=== PATIENT | female | born 1975 | race Two or more races ===

== ENCOUNTER 2024-11-04 06:21 | Emergency (ER) | payer MEDICAID, OTHER ==
[~2024-11-04] VITALS: Ht 165.1 cm; Wt 72.7 kg
[2024-11-04] MEDS: HYDROmorphone HCL 2 MG/ML VL/or syr IV ONE ×2 (07:00→16:17)
[2024-11-04] MEDS: ONDANSETRON HCL 4 MG/2 ML VIAL IV ONE ×2 (07:00→16:18)
--- NOTE | 2024-11-04 07:08 | ED.PDOC ---
GI ASSESSMENT HPI Comments 49-year-old female here with abdominal pain x2 days worse in the right lower quadrant. Patient reports, pain to be "stretching" like in nature worsening with movement. Patient endorses, LMB to have been as of this morning (11/04/24) which was accompanied by excessive gas. Patient denies current , nausea, vomiting, or diarrhea. No other symptoms or modifiers present at this time. Chief Complaint: Abdominal Pain Time Seen by MD: 06:33 Reviewed Notes: Nurses Notes, Medications, Allergies Allergies: Coded Allergies: Morphine (Verified Adverse Reaction, Severe, 11/04/24) Uncoded Allergies: steroids (Adverse Reaction, Unknown, 11/04/24) Home Meds Active Scripts Docusate Sodium (Colace) 100 Mg Cap, 1 CAP PO BID for 7 Days, #14 CAP Prov:BE WALLACE MD 11/04/24 Ondansetron Odt 4MG Tab (ZOFRAN PO) 4 Mg Tb, 4 MG PO Q8HPRN PRN for 7 Days, #21 TAB ODT TAB-DISSOLVE IN MOUTH, THEN SWALLOW Prov:BE WALLACE MD 11/04/24 Hydrocodone-Acetaminophen (Hydrocodone Bitartrate/AC 5-325 mg) 1 Tab Tab, 1 TAB PO Q6HP PRN for 7 Days, #14 TAB Prov:BE WALLACE MD 11/04/24 Information Source: Patient Mode of Arrival: Wheelchair Timing: Days Duration: Since onset Prehospital treatment: None Quality: None Vomitus: None Stool: Normal Severity: Moderate Recent: None Recent Hx of: None Pain Location: Diffuse Modifying Factors: Nothing Associated sign and symptoms: Nausea, Abdominal Pain Past Medical History PAST MEDICAL HISTORY: Denies Surgical History: Appendectomy WEEDER THINNER History: Denies all WEEDER THINNER Hx Family History Family History: Unknown Social History Smoker: Non-Smoker Alcohol: Denies ETOH Use Drugs: Denies Drug Use Lives In: Home Constitutional: denies: chills, diaphoresis, fatigue, fever, malaise, sweats, weakness, others EENTM: denies: blurred vision, double vision, ear bleeding, ear discharge, ear drainage, ear pain, ear ringing, eye pain, eye redness, hearing loss, mouth pain, mouth swelling, nasal discharge, nose bleeding, nose congestion, nose pain, photophobia, tearing, throat pain, throat swelling, voice changes, others Respiratory: denies: cough, hemoptysis, orthopnea, SOB at rest, shortness of breath, SOB with excertion, stridor, wheezing, others Cardiovascular: denies: chest pain, dizzy spells, diaphoresis, Dyspnea on exertion, edema, irregular heart beat, left arm pain, lightheadedness, palpitations, PND, syncope, others Gastrointestinal: reports: abdominal pain; denies: abdomen distended, blood st reaked bowels, constipated, diarrhea, dysphagia, difficulty swallowing, hematemesis, melena, nausea, poor appetite, poor fluid intake, rectal bleeding, rectal pain, vomiting, others Genitourinary: denies: abnormal vagina bleeding, burning, dyspareunia, dysuria, flank pain, frequency, hematuria, incontinence, pain, , vagina discharge, urgency, others Neurological: denies: dizziness, fainting, headache, left sided numbness, left sided weakness, numbness, paresthesia, pre-existing deficit, right sided numbness, right sided weakness, seizure, speech problems, tingling, tremors, weakness, others Musculoskeletal: denies: back pain, gout, joint pain, joint swelling, muscle pain, muscle stiffness, neck pain, others Integumetry: denies: bruises, change in color, change in hair/nails, dryness, laceration, lesions, lumps, rash, wounds, others Allergic/Immunocompromised: denies: Difficulty Healing, Frequent Infections, Hives, Itching, others Hematologic/Lymphatic: denies: anemia, blood clots, easy bleeding, easy bruising, swollen glands, others Endocrine: denies: excessive hunger, excessive sweating, excessive thirst, excessive urination, flushing, intolerance to cold, intolerance to heat, unexplained weight gain, unexplained weight loss, others Psychiatric: denies: anxiety, bipolar disorder, depression, hopeless, panic disorder, schizophrenia, sleepless, suicidal, others All Other Systems: Reviewed and Negative Physical Exam General Appearance: No Apparent Distress, Normal HEENT: Normal ENT Inspection, Pharynx Normal, TMs Normal Neck: Full Range of Motion, Non-Tender, Normal, Normal Inspection Respiratory: Chest Non-Tender, Lungs Clear, No Accessory Muscle Use, No Respiratory Distress, Normal Breath Sounds Cardiovascular: No Edema, No JVD, No Murmur, No Gallop, Normal Peripheral Pulses, Regular Rate/Rhythm Breast Exam: Deferred Gastrointestinal: No Organomegaly, No Pulsatile Mass, Normal Bowel Sounds, Other (diffuse abdominal tenderness worsening in the RLQ) Genitalia: Deferred Pelvic: Deferred Rectal: Deferred Extremities: No calf tenderness, Normal capillary refill, Normal inspection, Normal range of motion, Non-tender, No pedal edema Musculoskeletal : Apperance: Normal Neurologic: Alert, collection technician II-XII nml as Tested, No Motor Deficits, Normal Affect, Normal Mood, No Sensory Deficits Cerebellar Function: Normal Reflexes: Normal Skin: Dry, Normal Color, Warm Lymphatic: No Adenopathy Was a procedure done? Was a procedure done?: No GI differential Dx Differential Diagnosis: Bowel Obstruction, Diverticular disease, Ectopic , Urinary Obstruction, Urolithiasis X-Ray, Labs, Meds, VS Vital Signs Date Time Temp Pulse Resp B/P (MAP) Pulse Ox O2 Delivery O2 Flow Rate FiO2 11/04/24 13:25 98.4 62 14 113/58 (76) 99 98.4 11/04/24 11:30 97.8 63 18 118/68 (85) 98 97.8 11/04/24 09:15 72 18 97 Room Air 11/04/24 09:15 98.2 72 18 114/62 (79) 97 98.2 11/04/24 06:22 98.4 71 16 132/67 (88) 98 98.4 Lab Test 11/04/24 08:34 11/04/24 07:14 Range/Units Urine Color Light-yellow Yellow Urine Clarity Clear Clear Urine pH 7.0 5.0-9.0 Urine Specific [place] 1.010 1.001-1.035 Urine Protein Negative Negative Urine Ketones Negative Negative Urine Blood Negative Negative /uL Urine Nitrite Negative Negative Urine Bilirubin Negative Negative Urine Urobilinogen Normal Negative mg/dL Urine Leukocyte Esterase Negative Negative /uL Urine RBC <1 0 - 4 /hpf Urine Microscopic WBC < 1 0-5 /HPF Urine Squamous Epithelial Cells Few <5 /hpf Urine Bacteria None seen None Seen /hpf Urine Glucose Normal Normal mg/dL Urine Test Negative Negative White Blood Count 7.0 4.4-10.8 10^3/uL Red Blood Count 4.57 4.0-5.20 10^6/uL Hemoglobin 11.6 L 12.2-16.2 g/dL Hematocrit 35.7 L 36.0-46.0 % Mean Corpuscular Volume 78.1 L 80.0-100.0 fL Mean Corpuscular Hemoglobin 25.4 L 28.0-32.0 pg Mean Corpuscular Hemoglobin Concent 32.6 32.0-36.0 g/dL Red Cell Distribution Width 16.6 H 11.8-14.3 % Platelet Count 309 140-450 10^3/uL Mean Platelet Volume 7.7 6.9-10.8 fL Neutrophils (%) (Auto) 65.0 37.0-80.0 % Lymphocytes (%) (Auto) 25.8 10.0-50.0 % Monocytes (%) (Auto) 6.8 0.0-12.0 % Eosinophils (%) (Auto) 1.8 0.0-7.0 % Basophils (%) (Auto) 0.6 0.0-2.0 % Neutrophils # (Auto) 4.6 1.6-8.6 10 ^3/uL Lymphocytes # (Auto) 1.8 0.4-5.4 10 ^3/uL Monocytes # (Auto) 0.5 0-1.3 10 ^3/uL Eosinophils # (Auto) 0.1 0-0.8 10 ^3/uL Basophils # (Auto) 0 0-0.2 10 ^3/uL Nucleated Red Blood Cells 0.0 % Sodium Level 138 136-145 mmol/L Potassium Level 4.0 3.5-5.1 mmol/L Chloride Level 106 98-107 mmol/L Carbon Dioxide Level 25 20-31 mmol/L Anion Gap 7 5-15 Blood Urea Nitrogen 9 9-23 mg/dL Creatinine 0.54 L 0.550-1.02 mg/dL Glomerular Filtration Rate Calc 114 >90 mL/min BUN/Creatinine Ratio 16.7 10.0-20.0 Serum Glucose 146 H 74-106 mg/dL Calcium Level 9.3 8.7-10.4 mg/dL Total Bilirubin 0.7 0.2-1.0 mg/dL Aspartate Amino Transferase (AST) 37 13-40 U/L Alanine Aminotransferase (ALT) 49 H 7-40 U/L Alkaline Phosphatase 78 46-116 U/L Total Protein 7.3 5.7-8.2 g/dL Albumin 4.5 3.2-4.8 g/dL Lipase 43 12-53 U/L [place] [address] Ph: [phone] DIAGNOSTIC IMAGING Diagnostic Imaging Report : [id number] Signed PATIENT: WILLIAM MORENO ACCT: [id number] UNIT: [id number] : 1975 LOC: ER ROOM / BED: / AGE / SEX: 49 / F ADM STATUS: REG ER SERVICE 0706 ORDERING PHYSICIAN: BE WALLACE MD PROCEDURE(s): ABPEL - CT AB PELVIS W WO CON-IV ONLY REASON: kidney stone, sbp, divrticultis, appendicitis ORDER NUMBER(s): [id number], ACCESSION NUMBER(s): [id number] Exam: CT CT AB PELVIS W WO CON-IV ONLY History: Kidney stone, sbp, divrticultis, appendicitis Comparison Study: None Contrast: Type of contrast: Omnipaque 300 Contrast injected: 100ml Contrast wasted: 0 TECHNIQUE: CT of the abdomen pelvis was performed from the lung bases to the proximal femurs. Coronal and sagittal reformatted images are submitted. Radiation Dose Information: CT Dose: CTDI volume is 9.7 mGy. Dose-length product is by 15.2 mGy*cm FINDINGS: Lung Bases: No acute or significant lung base finding. Normal heart size. No pleural or pericardial effusion. Liver: The liver is normal in size. No focal lesions. Normal hepatic vascular enhancement. Diffusely hypoattenuating liver parenchyma consistent with hepatic steatosis. Gallbladder and Biliary Tree: There are gallstones. No biliary ductal dilatation. Spleen: Unremarkable Pancreas: The pancreas is normal in appearance without focal lesions or abnormal enhancement. Adrenal Glands: Unremarkable Kidneys: Kidneys demonstrate normal symmetric enhancement without focal lesions, calculi or hydronephrosis. Bladder: Unremarkable Bowel: The stomach is grossly normal in appearance. Small bowel and colon are normal in caliber and distribution. The appendix is surgically absent. Peritoneum: There is small volume pelvic free fluid. No pneumoperitoneum. Lymphadenopathy: No mesenteric, retroperitoneal or periportal lymphadenopathy. Abdominal Wall and Mesentery: Unremarkable. Vasculature: The visualized abdominal aorta is normal in size and caliber. Abdominal and pelvic vessels demonstrate normal enhancement. Pelvic Organs: There is a left adnexal solid mass measuring 3.3 cm. There is another left adnexal cystic lesion measuring 3.8 cm. Subcentimeter right adnexal cyst. Uterus appears grossly unremarkable. Musculoskeletal: No aggressive focal bony lesions, acute fractures or dislocat ion. Soft tissues: Unremarkable. IMPRESSION: 1. Left adnexal mass measuring 3.3 cm with adjacent free fluid. This may re flect a complex cyst with hemorrhage or solid. Separate 3.8 cm left adnexal cystic lesion. Pelvic ultrasound recommended for further evaluation. 2. Gallstones. All CT scans at this medical facility are performed using dose modulation techniques as appropriate to a performed exam including the following: Automated exposure control was utilized; adjustment of the MA and/or KV according to patient size; and use of iterative reconstruction technique. ATED BY: KIMMY MCKENNA MD DICTATED DATE/TIME: 11/04/24 1011 SIGNED BY: KIMMY MCKENNA MD SIGNED DATE/TIME: 11/04/24 1011 CC: [place] [address] Ph: [phone] DIAGNOSTIC IMAGING Diagnostic Imaging Report : [id number] Signed PATIENT: WILLIAM MORENO ACCT: [id number] UNIT: [id number] : 1975 LOC: ER ROOM / BED: / AGE / SEX: 49 / F ADM STATUS: REG ER SERVICE 1047 ORDERING PHYSICIAN: BE WALLACE MD PROCEDURE(s): PELUS - PELVIC REASON: LT ADNEXAL MASS ORDER NUMBER(s): [id number], ACCESSION NUMBER(s): [id number] EXAM: US PELVIC HISTORY: LT ADNEXAL MASS COMPARISON: Pre and post IV contrast CT scan of the pelvis from earlier same day. TECHNIQUE: Transvaginal and transabdominal pelvic ultrasound was performed. FINDINGS: The uterus measures 10.8 x 5.2 x 5.5 cm. The endometrium measures 13 mm in thickness. Multiple nabothian cysts are identified in the cervix. There is a hypoechoic 3.3 cm solid mass which does not demonstrate internal color doppler blood flow located along the left side of the lower uterine segment, consistent with findings on recent CT scan. The right ovary measures 3.8 x 2.6 x 2.3 cm and contains a 2.4 cm simple cyst. The left ovary measures 5.3 x 3.8 x 4.1 cm and contains a 4.6 cm simple cyst. Both ovaries demonstrate normal color Doppler blood flow. [id number]-wg-hqqudlyk free fluid is identified in the pelvis. IMPRESSION: 1. 3.3 cm solid mass along the left side of the lower uterine segment corresponds to mass lesion seen on recent CT scan. The recent CT demonstrated that this mass had internal contrast enhancement, although on the current study, this does not demonstrate internal color doppler blood flow. Recommend follow- up ultrasound examination of the pelvis in 6 weeks to re-evaluate for resolution or stability of this lesion. 2. Bilateral ovarian simple cysts. 3. Nabothian cysts in the cervix. Otherwise normal sonographic appearance of the uterus. 4. Low to moderate volume free fluid in the pelvis. ATED BY: DELIA CHAVES MD DICTATED DATE/TIME: 11/04/24 1153 SIGNED BY: DELIA CHAVES MD SIGNED DATE/TIME: 11/04/24 1153 CC: 49-year-old female presents here with right lower quadrant pain. On my examination she is very tender diffusely but worse in the right lower quadrant. Considered possible ectopic however she is not . Considered SBO, residual appendicitis. CT abdomen pelvis with and without contrast was performed. There was no evidence of small-bowel obstruction. There is evidence of however a left adnexal mass measuring 3.3 cm with adjacent free fluid. May represent complex cyst with hemorrhage or solid mass. Ultrasound was then recommended. Ultrasound demonstrated a 3.3 cm solid mass along left-sided lower uterine segment corresponding to mesh lesion on the CT. Recommend follow up ultrasound examination of the pelvis in 6 weeks to re-evaluate for resolution of the stability of the lesion. At this time I have spoken to the patient. She is a member of [employer]. I have called [facility] in his awaiting their phone call to make sure she has appropriate follow up on repeat ultrasound in 6 weeks as recommended. I have given her a prescription for [place] Zofran and Colace at home. I had a long discussion with the patient. She is currently but due to contrast she will not breast-feed with the next 3 days. Additionally given that she has free fluid in the belly advised her this will likely be very painful. Patient agreeable. Advised her to return back to the ER if symptoms worsen or persist. Time of 1ST Reevaluation: 08:33 Reevaluation 1ST: Unchanged Patient Education/Counseling: Diagnosis, Treatment Family Education/Counseling: No Family Present Departure 1 Departure Time of Disposition: 14:57 Impression: Primary Impression: Ovarian mass Additional Impression: Ruptured ovarian cyst Disposition: 01 HOME / SELF CARE / HOMELESS Condition: Stable Additional Instructions: Follow up for repeat ultrasound at [facility] in 6 weeks of the pelvis. Return back to the ER if symptoms worsen or persist. [place] [address] Ph: [phone] DIAGNOSTIC IMAGING Diagnostic Imaging Report : [id number] Signed PATIENT: WILLIAM MORENO ACCT: [id number] UNIT: [id number] : 1975 LOC: ER ROOM / BED: / AGE / SEX: 49 / F ADM STATUS: REG ER SERVICE 0706 ORDERING PHYSICIAN: BE WALLACE MD PROCEDURE(s): ABPEL - CT AB PELVIS W WO CON-IV ONLY REASON: kidney stone, sbp, divrticultis, appendicitis ORDER NUMBER(s): [id number], ACCESSION NUMBER(s): [id number] Exam: CT CT AB PELVIS W WO CON-IV ONLY History: Kidney stone, sbp, divrticultis, appendicitis Comparison Study: None Contrast: Type of contrast: Omnipaque 300 Contrast injected: 100ml Contrast wasted: 0 TECHNIQUE: CT of the abdomen pelvis was performed from the lung bases to the proximal femurs. Coronal and sagittal reformatted images are submitted. Radiation Dose Information: CT Dose: CTDI volume is 9.7 mGy. Dose-length product is by 15.2 mGy*cm FINDINGS: Lung Bases: No acute or significant lung base finding. Normal heart size. No pleural or pericardial effusion. Liver: The liver is normal in size. No focal lesions. Normal hepatic vascular enhancement. Diffusely hypoattenuating liver parenchyma consistent with hepatic steatosis. Gallbladder and Biliary Tree: There are gallstones. No biliary ductal dilatation. Spleen: Unremarkable Pancreas: The pancreas is normal in appearance without focal lesions or abnormal enhancement. Adrenal Glands: Unremarkable Kidneys: Kidneys demonstrate normal symmetric enhancement without focal lesions, calculi or hydronephrosis. Bladder: Unremarkable Bowel: The stomach is grossly normal in appearance. Small bowel and colon are normal in caliber and distribution. The appendix is surgically absent. Peritoneum: There is small volume pelvic free fluid. No pneumoperitoneum. Lymphadenopathy: No mesenteric, retroperitoneal or periportal lymphadenopathy. Abdominal Wall and Mesentery: Unremarkable. Vasculature: The visualized abdominal aorta is normal in size and caliber. Abdominal and pelvic vessels demonstrate normal enhancement. Pelvic Organs: There is a left adnexal solid mass measuring 3.3 cm. There is another left adnexal cystic lesion measuring 3.8 cm. Subcentimeter right adnexal cyst. Uterus appears grossly unremarkable. Musculoskeletal: No aggressive focal bony lesions, acute fractures or dislocation. Soft tissues: Unremarkable. IMPRESSION: 1. Left adnexal mass measuring 3.3 cm with adjacent free fluid. This may reflec t a complex cyst with hemorrhage or solid. Separate 3.8 cm left adnexal cystic lesion. Pelvic ultrasound recommended for further evaluation. 2. Gallstones. All CT scans at this medical facility are performed using dose modulation techniques as appropriate to a performed exam including the following: Automated exposure control was utilized; adjustment of the MA and/or KV according to patient size; and use of iterative reconstruction technique. ATED BY: KIMMY MCKENNA MD DICTATED DATE/TIME: 11/04/24 1011 SIGNED BY: KIMMY MCKENNA MD SIGNED DATE/TIME: 11/04/24 1011 CC: [place] [address] Ph: [phone] DIAGNOSTIC IMAGING Diagnostic Imaging Report : [id number] Signed PATIENT: WILLIAM MORENO ACCT: [id number] UNIT: [id number] : 1975 LOC: ER ROOM / BED: / AGE / SEX: 49 / F ADM STATUS: REG ER SERVICE 1047 ORDERING PHYSICIAN: BE WALLACE MD PROCEDURE(s): PELUS - PELVIC REASON: LT ADNEXAL MASS ORDER NUMBER(s): [id number], ACCESSION NUMBER(s): [id number] EXAM: US PELVIC HISTORY: LT ADNEXAL MASS COMPARISON: Pre and post IV contrast CT scan of the pelvis from earlier same day . TECHNIQUE: Transvaginal and transabdominal pelvic ultrasound was performed. FINDINGS: The uterus measures 10.8 x 5.2 x 5.5 cm. The endometrium measures 13 mm in thickness. Multiple nabothian cysts are identified in the cervix. There is a hypoechoic 3.3 cm solid mass which does not demonstrate internal color doppler blood flow located along the left side of the lower uterine segment, consistent with findings on recent CT scan. The right ovary measures 3.8 x 2.6 x 2.3 cm and contains a 2.4 cm simple cyst. The left ovary measures 5.3 x 3.8 x 4.1 cm and contains a 4.6 cm simple cyst. Both ovaries demonstrate normal color Doppler blood flow. Ubi-nr-eovumiqx free fluid is identified in the pelvis. IMPRESSION: 1. 3.3 cm solid mass along the left side of the lower uterine segment corresponds to mass lesion seen on recent CT scan. The recent CT demonstrated that this mass had internal contrast enhancement, although on the current study, this does not demonstrate internal color doppler blood flow. Recommend follow- up ultrasound examination of the pelvis in 6 weeks to re-evaluate for resolution or stability of this lesion. 2. Bilateral ovarian simple cysts. 3. Nabothian cysts in the cervix. Otherwise normal sonographic appearance of the uterus. 4. Low to moderate volume free fluid in the pelvis. ATED BY: DELIA CHAVES MD DICTATED DATE/TIME: 11/04/24 1153 SIGNED BY: DELIA CHAVES MD SIGNED DATE/TIME: 11/04/24 1153 e-Prescriptions Docusate Sodium (Colace) 100 Mg Cap 1 CAP PO BID for 7 Days, #14 CAP Prov: BE WALLACE MD 11/04/24 Ondansetron Odt 4MG Tab (ZOFRAN PO) 4 Mg Tb 4 MG PO Q8HPRN PRN for 7 Days, #21 TAB ODT TAB-DISSOLVE IN MOUTH, THEN SWALLOW Prov: BE WALLACE MD 11/04/24 Hydrocodone-Acetaminophen (Hydrocodone Bitartrate/AC 5-325 mg) 1 Tab Tab 1 TAB PO Q6HP PRN for 7 Days, #14 TAB Prov: BE WALLACE MD 11/04/24 Critical Care Note Critical Care Time?: No Stability Stability form required: No Heart Score Heart Score: Heart Score Response (Comments) Value History N/A 0 EKG N/A 0 Age N/A 0 Risk Factors N/A 0 Troponin N/A 0 Total 0 I personally scribed for BE WALLACE MD ([email or web address]) on 11/04/24 at 07:20. Electronically submitted by Nessa Tom [email or web address]). I personally scribed for BE WALLACE MD ([email or web address]) on 11/04/24 at 07:57. Electronically submitted by Nessa Tom ([email or web address]). I personally scribed for BE WALLACE MD ([email or web address]) on 11/04/24 at 11:05. Electronically submitted by Nessa Tom ([email or web address]). I personally scribed for BE WALLACE MD ([email or web address]) on 11/04/24 at 14:46. Electronically submitted by Nessa Tom ([email or web address]). I personally scribed for BE WALLACE MD ([email or web address]) on 11/04/24 at 15:02. Electronically submitted by Nessa Tom [email or web address]). BE WALLACE MD Nov 04, 2024 07:08
[2024-11-04 07:27] LABS: Basophils # (auto) 0 10 ^3/uL (0-0.2); Basophils % (auto) 0.6 % (0.0-2.0); Eosinophils # (auto) 0.1 10 ^3/uL (0-0.8); Eosinophils % (auto) 1.8 % (0.0-7.0); Hemoglobin 11.6 g/dL (12.2-16.2); Lymphocytes # (auto) 1.8 10 ^3/uL (0.4-5.4); Mean Corpuscular Volume 78.1 fL (80.0-100.0); Monocytes # (auto) 0.5 10 ^3/uL (0-1.3)
[2024-11-04 07:28] LABS: Hematocrit 35.7 % (36.0-46.0); Lymphocytes % (auto) 25.8 % (10.0-50.0); Mean Corpuscular Hemoglobin 25.4 pg (28.0-32.0); Mean Corpuscular Hgb Conc. 32.6 g/dL (32.0-36.0); Monocytes % (auto) 6.8 % (0.0-12.0); Neutrophils # (auto) 4.6 10 ^3/uL (1.6-8.6); Platelet Count (auto) 309 10^3/uL (140-450); Red Blood Cells 4.57 10^6/uL (4.0-5.20); Red Cell Distribution Width 16.6 % (11.8-14.3)
[2024-11-04 07:43] LABS: Albumin 4.5 g/dL (3.2-4.8); Alkaline Phosphatase 78 U/L (46-116); Anion Gap 7 (5-15); Aspartate Aminotransferase 37 U/L (13-40); BUN/Creatinine Ratio 16.7 (10.0-20.0); Bilirubin, Total 0.7 mg/dL (0.2-1.0); Blood Urea Nitrogen 9 mg/dL (9-23); Calcium 9.3 mg/dL (8.7-10.4); Carbon Dioxide 25 mmol/L (20-31); Chloride 106 mmol/L (98-107); Lipase 43 U/L (12-53); Sodium 138 mmol/L (136-145); Total Protein 7.3 g/dL (5.7-8.2)
[2024-11-04 07:44] LABS: Alanine Aminotransferase 49 U/L (7-40); Glucose 146 mg/dL (74-106)
[2024-11-04 08:35] LABS: Urine Bacteria None Seen /hpf (None Seen)
[2024-11-04 08:40] LABS: Urine Blood Negative /uL (Negative); Urine Clarity Clear (Clear); Urine Color Light-Yellow (Yellow); Urine Protein, UAD Negative (Negative); Urine Squamous Epithelial Cell FEW /hpf (<5); Urine Urobilinogen Normal (Negative); Urine WBC < 1 /HPF (0-5)
[2024-11-04] MEDS: IOHEXOL 300 MG/ML 100ML BOTTLE IJ ONE (09:44)
--- NOTE | 2024-11-04 10:13 | DVH ---
Exam: CT CT AB PELVIS W WO CON-IV ONLY History: Kidney stone, sbp, divrticultis, appendicitis Comparison Study: None Contrast: Type of contrast: Omnipaque 300 Contrast injected: 100ml Contrast wasted: 0 TECHNIQUE: CT of the abdomen pelvis was performed from the lung bases to the proximal femurs. Deg[place] l and sagittal reformatted images are submitted. Radiation Dose Information: CT Dose: CTDI volume is 9.7 mGy. Dose-length product is by 15.2 mGy*cm FINDINGS: Lung Bases: No acute or significant lung base finding. Normal heart size. No pleural or pericardial effusion. Liver: The liver is normal in size. No focal lesions. Normal hepatic vascular enhancement. Diffusely hypoattenuating liver parenchyma consistent with hepatic steatosis. Gallbladder and Biliary Tree: There are gallstones. No biliary ductal dilatation. Spleen: Unremarkable Pancreas: The pancreas is normal in appearance without focal lesions or abnormal enhancement. Adrenal Glands: Unremarkable Kidneys: Kidneys demonstrate normal symmetric enhancement without focal lesions, calculi or hydroneph rosis. Bladder: Unremarkable Bowel: The stomach is grossly normal in appearance. Small bowel and colon are normal in caliber and d istribution. The appendix is surgically absent. Peritoneum: There is small volume pelvic free fluid. No pneumoperitoneum. Lymphadenopathy: No mesenteric, retroperitoneal or periportal lymphadenopathy. Abdominal Wall and Mesentery: Unremarkable. Vasculature: The visualized abdominal aorta is normal in size and caliber. Abdominal and pelvic vess els demonstrate normal enhancement. Pelvic Organs: There is a left adnexal solid mass measuring 3.3 cm. There is another left adnexal cys tic lesion measuring 3.8 cm. Subcentimeter right adnexal cyst. Uterus appears grossly unremarkable. Musculoskeletal: No aggressive focal bony lesions, acute fractures or dislocation. Soft tissues: Unremarkable. IMPRESSION: 1. Left adnexal mass measuring 3.3 cm with adjacent free fluid. This may reflect a complex cyst with hemorrhage or solid. Separate 3.8 cm left adnexal cystic lesion. Pelvic ultrasound recommended for further evaluation. 2. Gallstones. All CT scans at this medical facility are performed using dose modulation techniques as appropriate t o a performed exam including the following: Automated exposure control was utilized; adjustment of th e MA and/or KV according to patient size; and use of iterative reconstruction technique.
--- NOTE | 2024-11-04 11:56 | DVH ---
EXAM: US PELVIC HISTORY: LT ADNEXAL MASS COMPARISON: Pre and post IV contrast CT scan of the pelvis from earlier same day. TECHNIQUE: Transvaginal and transabdominal pelvic ultrasound was performed. FINDINGS: The uterus measures 10.8 x 5.2 x 5.5 cm. The endometrium measures 13 mm in thickness. Multiple nabot hian cysts are identified in the cervix. There is a hypoechoic 3.3 cm solid mass which does not demon strate internal color doppler blood flow located along the left side of the lower uterine segment, co nsistent with findings on recent CT scan. The right ovary measures 3.8 x 2.6 x 2.3 cm and contains a 2.4 cm simple cyst. The left ovary measures 5.3 x 3.8 x 4.1 cm and contains a 4.6 cm simple cyst. B oth ovaries demonstrate normal color Doppler blood flow. [id number] free fluid is identified i n the pelvis. IMPRESSION: 1. 3.3 cm solid mass along the left side of the lower uterine segment corresponds to mass lesion seen on recent CT scan. The recent CT demonstrated that this mass had internal contrast enhancement, alt jacy on the current study, this does not demonstrate internal color doppler blood flow. Recommend f ollow-up ultrasound examination of the pelvis in 6 weeks to re-evaluate for resolution or stability o f this lesion. 2. Bilateral ovarian simple cysts. 3. Nabothian cysts in the cervix. Otherwise normal sonographic appearance of the uterus. 4. Low to moderate volume free fluid in the pelvis.
[2024-11-04] MEDS ORDERED: ZOFR4T PO (14:55)
[2024-11-04] MEDS ORDERED: DOCU-94 PO (14:55)
[2024-11-04] MEDS ORDERED: HYDR-4902 PO (14:55)
[2024-11-04 15:28] VITALS: TEMP 97.7; O2SAT 98
[2024-11-04 16:51] VITALS: BP 112/68; PULSE 61; RESP 16
== END 2024-11-04 16:57 | disposition home or self-care (01) ==
LOC: ER 06:26
DX: N83.9 Noninflammatory disorder of ovary, fallopian tube and broad ligament, unspecified (principal); N83.202 Unspecified ovarian cyst, left side; Z90.49 Acquired absence of other specified parts of digestive tract; Z88.5 Allergy status to narcotic agent; Z79.899 Other long term (current) drug therapy
CPT/HCPCS: 36415; 74178; 76830; 76856; 80053; 81001; 81025; 83690; 85025; 96374; 96375; 99285; J1171; J2405; Q9967